=== PATIENT | female | born 1935 | race American Indian/Alaskan Native ===

== ENCOUNTER 2016-08-18 07:05 | Day surgery (SDC) | payer MEDICARE ==
[2016-08-18] MEDS ORDERED: XYLOCAINE 1% 20 mL ONE (07:30)
[2016-08-18] MEDS ORDERED: NACL BACTERIOSTATIC INFILTRATI ONE (07:32)
--- NOTE | 2016-08-18 07:43 | Anesthesia Day of Surgery ---
Anesthesia Day of Surgery - Day of Surgery Patient Examined: Yes Patient H&P Reviewed: Yes Patient is NPO: Yes Beta Blockers: Yes
--- NOTE | 2016-08-18 07:47 | Anesthesia Consultation ---
Anesthesia Consult and Med Hx Date of service: 08/18/16 - Airway Anesthetic Teeth Evaluation: Good ROM Head & Neck: Adequate Mental/Hyoid Distance: Adequate Mallampati Class: Class II Intubation Access Assessment: Probably Good - Pulmonary Exam CTA: Yes - Cardiac Exam Cardiac Exam: RRR - Pre-Operative Health Status ASA Pre-Surgery Classification: ASA3 Proposed Anesthetic Plan: General - Pulmonary Hx Smoking: Yes (CIGARETTES 5 CIGS PD X 10 YRS, QUIT IN 1966) Hx Asthma: No Hx Sleep Apnea: No - Cardiovascular System Hx Hypertension: Yes (FOR 11 YRS, DR. HARTMANN- PCP) Hx Heart Attack/AMI: No Hx Angina: No (palpitation in past, resolved per pt) - Central Nervous System Hx Seizures: No CVA: No Hx Back Pain: No Hx Psychiatric Problems: No - Gastrointestinal Hx Gastroesophageal Reflux Disease: No - Endocrine Hx Renal Disease: No Hx Liver Disease: No Hx Non-Insulin Dependent Diabetes: No - Hematic Hx Anemia: No Hx Sickle Cell Disease: No - Other Systems Hx Cancer: Yes (RIGHT BREAST, DX: 06/2016) Hx Obesity: Yes - Additional Comments Anesthesia Medical History Comments: NAC
[2016-08-18] MEDS ORDERED: VERSED IV NR (08:00)
[2016-08-18] MEDS ORDERED: VANCOMYCIN/NS 1 GM/250 ML 250 ML IV NR (08:00)
[2016-08-18] MEDS ORDERED: PEPCID PO NR (08:00)
[2016-08-18] MEDS ORDERED: NACL 0.9% 1000 ML 1,000 ML IV SCH (08:00)
--- NOTE | 2016-08-18 08:03 | Admit Criteria Form ---
Admission Criteria Documentation: AMBULATORY SURGERY EXCEPTION CRITERIA Ambulatory Surgery Exception Criteria ( Place 'X' for any and all applicable criteria): Surgery or procedure performed on ambulatory basis may require inpatient stay for[A] ANY ONE of the following(1)(2)(3)(4)(5)(6)(7)(8)(9): [X] I. A preoperative situation, condition, or finding that warrants inpatient stay as indicated by ANY ONE of the following: [] a) Inpatient care needed because of severity of a disease or condition rather than the surgery (eg, severe cardiac or respiratory disease, severe infection) (15) (16 ) (17) (18) [] b) Emergent procedure (eg, angioplasty for acute ischemia)(19) [] c) Complex surgical approach or situation as indicated by ANY ONE of the following(3): [] i) Open approach needed instead of usual endoscopic, transcatheter, or other less invasive procedure [] ii) Difficult approach because of previous operation [] iii) Airway monitoring required after open neck procedures(20)(21) [] iv) Large mass requiring unusually extensive dissection [] v) Additional complicating feature requiring inpatient care (eg, drain management)(22(23): [X] d) Major surgery in a pt with high anesthetic risk as indicated by ANY ONE of the following (2)(3)(5)(7)(8): [X] i) ASA risk class III or higher (severe systemic disease impairing function) [D] [] ii) Advanced age (eg, older than 85 years)(14)(24) [] iii) Symptomatic heart failure(25) [] iv) Symptomatic asthma or COPD(8)(21) [] v) Morbid obesity with hemodynamic or respiratory problems(20)( 21)(26)(27) [] vi) Obstructive sleep apnea(20)(21) [] vii) Former premature infants who are younger than 60 weeks [] viii) High risk for severe postoperative abnormalities (eg, severe postoperative hypocalcemia after parathyroidectomy for severe hyperparathyroidism)(27)( 28) [] ix) Unstable angina(25) [] e) Drug-related risk requiring inpatient stay as indicated by ANY ONE of the following(5)(10)(14)(32)(33) [] i) Procedure requires discontinuing drugs or other therapy (eg , antiarrhythmic medication, antiseizure medication), which necessitates inpatient observation or treatment.(18)(31) [] ii) Major surgery and high risk drug use as indicated by ANY ONE of the following: [] 1) Active abuse of cocaine or similar drug [] 2) Monoamine oxidase inhibitor use [] 3) Other drug identified as posing risk [] f) Inadequate outpatient care situation as indicated by ANY ONE of the following(5)(10)(14)(32)(33) [] i) Patient lives remote from medical facility and procedure has urgent complication potential, and temporary nearby residence cannot be arranged [] ii) Patient will have postprocedure incapacitation and inadequate assistance at home, or alternative level of care cannot be arranged. [] iii) Patient will have long general anesthesia or procedure side effect resolution time, and competent person to stay with patient on first postoperative night at home or alternative level of care cannot be arranged. []iv) Other inadequate outpatient situation that cannot be handled by other means [] II. A perioperative event, condition, or finding that warrants inpatient stay as indicated by ANY ONE of the following (1)(2)(3): [] a) Inadequate physiologic recovery: cardiovascular, respiratory, or hemodynamic status not normal or near preoperative baseline(18) [] b) Hemodynamic instability [] c) Patient not alert with near normal or baseline mental status [] d) Temperature not normal or as expected and not appropriate for outpatient treatment of condition [] e) Ambulatory or appropriate activity level status not yet achieved post procedure [E](34)(35)(36) [] f) Operative site not appropriate (eg, unexpected or excessive drainage or bleeding) [] g) Postoperative effects not resolved or adequately managed (eg, significant pain or vomiting not appropriate for outpatient or next level of care)(10)(12) [] h) Complicating features requiring inpatient care as indicated by ANY ONE of the following(37): [] i) Severe complications of procedure (eg, bowel injury, airway compromise, vascular injury,severe hemorrhage) [] ii) Extensive (eg, dissection far beyond usual scope of procedure ) or prolonged (eg, 120 minutes beyond usual) surgery needed requiring inpatient postoperative care [] iii) Conversion to an open or complex procedure that requires inpatient care (eg, open vs laparoscopic cholecystectomy, abdominal vs vaginal hysterectomy)(38) [] iv) Comorbid condition or test result identified during or post procedure that requires inpatient care (7) [] v) Malignant hyperthermia(30) [] vi) Other complicating feature requiring inpatient care(22)(23) Inpatient stay may be needed until ALL of the following are present (1)(2)(3)(4) (5)(6)(10)(14)(33)(40): []a) Physiologic recovery: cardiovascular, respiratory, and hemodynamic status normal or near preoperative baseline []b) Hemodynamic stability []c) Patient alert, with near normal or baseline mental status []d) Temperature appropriate: patient afebrile or temperature appropriate for outpt treatment of condition []e) Activity level appropriate: ambulatory or appropriate activity level post procedure []f) Operative site appropriate as indicated by ALL of the following: []i) Site dry or with expected drainage []ii) Any blood noted is as expected for procedure. []g) Postoperative effects resolved or managed as indicated by ALL of the following: []i) Pain management appropriate for outpatient (or next level of) care(10) []ii) Minimal nausea and vomiting: if present, successfully treated with oral medication(12) []iii) Headache, dizziness, or drowsiness (if present) are mild. []h) Voiding status acceptable as indicated by ANY ONE of the following: []i) Voiding spontaneously []ii) No voiding but instructions given for follow-up in 6 to 8 hours []iii) Urinary catheter in place, and instructions given for follow-up []i) Complicating features requiring inpatient care manageable at a lower level of care(37) []j) Comorbid conditions manageable at a lower level of care(37) The original [employer] content created by [employer] has been revised. The portions of the content which have been revised are identified through the use of italic text or in bold, and [facility] [employer] has neither reviewed nor approved the modified material. All other unmodified content is copyright [employer]. Please see references footnoted in the original [employer] edition 2016 Admission Criteria Met: Yes
[2016-08-18] MEDS ORDERED: XYLOCAINE 1% 20 mL INFILTRATI ONE (09:33)
[2016-08-18] MEDS ORDERED: WATER FOR IRRIG STERILE IR ONE ×2 (09:33→09:34)
[2016-08-18] MEDS ORDERED: XYLOCAINE MPF 2% ONE (09:54)
[2016-08-18] MEDS ORDERED: DIPRIVAN 10 MG/ML IV ONE (09:54)
[2016-08-18] MEDS ORDERED: DILAUDID ONE (09:54)
--- NOTE | 2016-08-18 10:19 | Procedure Note ---
Date of procedure: 08/18/16 Pre-op diagnosis: Breast cancer Post-op diagnosis: same Procedure: Needle localization Anesthesia: local Surgeon: MARIA GUADALUPE WILLSON Estimated blood loss: none Pathology: none Condition: stable (To surgery)
[2016-08-18] MEDS ORDERED: ZOFRAN ONE (10:30)
[2016-08-18] MEDS ORDERED: DECADRON ONE (10:30)
--- NOTE | 2016-08-18 11:15 | Mammography Report ---
Specimen radiograph. Findings: A single specimen radiograph confirms the presence of the biopsy clip and hookwire within the specimen.
--- NOTE | 2016-08-18 11:30 | Mammography Report ---
RIGHT BREAST NEEDLE LOCALIZATION PROCEDURE USING MAMMOGRAPHIC GUIDANCE: PROCEDURE: The patient's prior films were reviewed. The skin surface overlying the area of interest was prepped and draped using sterile technique. Local anesthetic was injected into the skin. Using mammographic guidance, a 5 cm Wright needle was advanced into the lateral aspect of the right breast at the site of the single biopsy clip. Adequate localization was accomplished and a hookwire was left in place. The patient tolerated the procedure well clinically and was sent to the OR in satisfactory condition.
--- NOTE | 2016-08-18 11:47 | Short Stay Summary ---
Short Stay Documentation Date of service: 08/18/16 - History H&P: obtained from office - Allergies and Medications Current Medications: Allergies penicillin Allergy (Unverified 04/24/15 13:56) Rash Home Medications Medication Instructions Recorded Confirmed Last Taken Type Aspirin [Adult Low Dose Aspirin EC] 81 mg PO QDAY 08/05/16 08/05/16 5 Days Ago History AtorvaSTATin [Lipitor] 20 mg PO QDAY 08/05/16 08/18/16 08/17/16 History Cholecalciferol Vit D3 [Vitamin D3] 1,000 unit PO QDAY 08/05/16 08/05/16 5 Days Ago History Losartan/Hydrochlorothiazide 1 each PO QDAY 08/05/16 08/05/16 08/18/16 06:30 History [Losartan-Hctz 100-25 mg Tab] Metoprolol [Lopressor TAB] 50 mg PO QDAY 08/05/16 08/05/16 08/18/16 06:30 History Multivit-Min/FA/Lycopen/Lutein 1 each PO QDAY 08/05/16 08/05/16 5 Days Ago History [Centrum Silver Tablet] amLODIPine [Norvasc] 5 mg PO DAILY 08/05/16 08/05/16 08/18/16 06:30 History HYDROcodone/APAP 5-325 [[place] 1 each PO Q6HR PRN #30 tablet 08/18/16 Unknown Rx 5/325] Active Medications Famotidine (Pepcid) 20 mg PO PREOP NR Stop: 08/18/16 23:00 Last Admin: 08/18/16 07:59 Dose: 20 mg Sodium Chloride (Nacl 0.9% 1000 Ml) 1,000 mls @ 75 mls/hr IV DIRECT ROSIBEL Last Admin: 08/18/16 08:49 Dose: 75 mls/hr Vancomycin HCl (Vancomycin/Ns 1 Gm/250 Ml) 250 mls @ 167 mls/hr IV PREOP NR PRN Reason: Protocol Stop: 08/18/16 23:00 Last Admin: 08/18/16 09:25 Dose: 167 mls/hr Midazolam HCl (Versed) 2 mg IV PREOP NR Stop: 08/18/16 23:59 Last Admin: 08/18/16 08:56 Dose: 1 mg - Brief post op/procedure progress note Date of procedure: 08/18/16 Pre-op diagnosis: Right breast cancer, DCIS Post-op diagnosis: same Procedure: Right needle localization partial mastectomy Anesthesia: GETA Findings: Wire and clip present within radiograph specimen Surgeon: ERNESTO MARSHALL Estimated blood loss: minimal Pathology: list (right needle localization) Specimen disposition: to lab Condition: stable - Disposition Condition at discharge: Good Disposition: DISCHARGED TO HOME OR SELFCARE Short Stay Discharge Plan Activity: other (no heavy lifting) Diet: regular Wound: other (keep incision clean and dry and may shower in 24 hours; no baths, pools or lakes; do not rub or scrub incision) Follow up with: AMBROCIO SHARMA MD [Primary Care Provider] - 7 Days ERNESTO MARSHALL MD [Staff Physician] - 7 Days Prescriptions: HYDROcodone/APAP 5-325 [[place] 5/325] 1 each PO Q6HR PRN #30 tablet PRN Reason: Pain
--- NOTE | 2016-08-18 11:53 | Operative Report ---
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 Anesthesia: Gen. Findings: Wire and clip present within radiograph specimen Drains: None Complications: None Disposition: Good condition to PACU Indications for operative procedure: This is a 81-year-old -[place] lady recently diagnosed with intermediate grade ductal carcinoma in situ of the right upper outer quadrant. Patient was noted to have suspicious microcalcifications noted on stereotactic breast biopsy with biopsy performed with findings of ductal carcinoma in situ. Recommendations were to proceed with a right needle localization partial mastectomy. Patient agreed to the above. Procedure in detail: Patient had a wire needle localization performed by radiology. Patient was then taken to the operating room and was laid supine. Gen. anesthesia was administered. The right breast was prepped and draped in the normal sterile operative fashion. The wire was noted. A skin incision was then made with a 15 blade knife with dissection taken down to the subcutaneous tissues. Procedure first began with raising of the lateral flap and removal of wire from the skin. Then proceeded with raising of the medial flap followed by the superior and inferior flaps. The specimen was appropriately removed from the pectoralis muscle without incident. Radiograph specimen with wire and clip present. Hemostasis was obtained with the Bovie cautery. The breast cavity was irrigated and suctioned. The skin incision was anesthetized with 1% lidocaine and quarter percent marcaine. The subcutaneous tissues were approximated and closed with an interrupted 3-0 Vicryl and skin closed with a running 4 Monocryl and skin affix. She tolerated surgery very well and was awakened from anesthesia without any complications and transported to PACU in good condition.
[2016-08-18] MEDS ORDERED: DILAUDID IV PRN (11:57)
--- NOTE | 2016-08-18 12:54 | Post Anesthesia Evaluation ---
- Post Anesthesia Evaluation Patient Participated: Yes Airway Patent: Yes Stable Respiratory Function: Yes Nausea/Vomiting: No Temp > 96.8F: Yes Pain Manageable: Yes Adequeate Hydration: Yes Anesthesia Complications: No Block Receding Appropriately: Not Applicable Patient on Ventilator: No
[2016-08-18 13:35] VITALS: BP 141/68
== END 2016-08-18 13:33 | disposition home or self-care (01) ==
LOC: OR 07:05
PROVIDERS: ATTEND Surgery
DX: D05.11 Intraductal carcinoma in situ of right breast (principal); I10 Essential (primary) hypertension; M41.9 Scoliosis, unspecified; E78.00 Pure hypercholesterolemia, unspecified; E66.9 Obesity, unspecified; Z68.32 Body mass index [BMI] 32.0-32.9, adult; Z87.891 Personal history of nicotine dependence; Z80.3 Family history of malignant neoplasm of breast; Z98.890 Other specified postprocedural states
CPT/HCPCS: 19281; 19301; 76098; 88307; J1100; J1170; J2250; J2405; J2704; J3370; J7030

== ENCOUNTER 2017-05-06 10:30 | Outpatient (CLI) | payer MEDICARE ==
--- NOTE | 2017-05-06 11:48 | Mammography Report ---
BONE DENSITY STUDY: DEFINITIONS: BMD = Bone Mineral Density T-score = BMD related to mean peak bone mass of young adult (mean expressed in Standard Deviation) Z-score = Age matched BMD expressed in SD World Health Organization (WHO) Diagnostic Criteria Normal T-score > -1 SD Osteopenia T-score between -1 and -2.4 SD Osteoporosis T-score -2.5 SD or below FINDINGS: The weighted average BMD of lumbar spine L1-L4 is 0.943 with a T-score of -0.9. The weighted average BMD of hip is 0.817 with a T-score of -1. IMPRESSION: The patient's T-score is diagnostic for osteopenia and average relative risk for fracture. NOTE: BMD is not the only risk factor for fracture; also consider factors such as the patient's age, risk of falling, previous osteoporotic fracture, family history of osteoporotic fractures, current smoker, and low body weight. Feldman's triangle is a region of interest in femur, predominantly of trabecular bone. It is not a true anatomic site, and ISCD does not recommend its use clinically.
== END 2017-05-06 10:31 | disposition home or self-care (01) ==
LOC: MAMMO 10:30
PROVIDERS: ATTEND Internal Medicine Hematology & Oncology
DX: M85.88 Other specified disorders of bone density and structure, other site (principal)
CPT/HCPCS: 77080

== ENCOUNTER 2019-05-07 11:01 | Outpatient (CLI) | payer MEDICARE ==
--- NOTE | 2019-05-07 13:34 | Mammography Report ---
BONE DEXA CLINICAL: Postmenopausal. COMPARISON: 05/06/2017 and 04/24/2015 TECHNIQUE: 2 site bone DEXA performed on an Hologic scanner. FINDINGS: The average BMD of the lumbar spine L1-L4 is 1.015g/cm squared with a T score of -0.3 and a Z score o f +1.8. This compares to 0.943g/cm squared on the last exam and represents a +7.7 % change from the [ last exam and a +4.0% change from baseline]. Moderate levoscoliosis with endplate sclerosis at L3-4 a nd L4-5. The average BMD of the left hip is 0.837 g/cm squared with a T score of -0.9and a Z score of -0.4. Th is compares to 0.817 g/cm squared on the last exam and represents a +2.4 % change from the [last exam and a +0.3% change from baseline. The left femoral neck BMD is 0.700g/cm squared with a T score of -1.3 and a Z score of 0. IMPRESSION: 1. WHO classification: Normal with average fracture risk based on spine measurements. 2. WHO classification Osteopenia with increased fracture risk based on left hip measurements. 3. A moderate improvement in spine BMD and a more modest improvement in left hip BMD compared to prev ious exams. 4. Major osteoporotic fracture risk is 5.2%. 5. Hip fracture risk is 1.1%. RECOMMENDATION: Clinical correlation and routine screening. Definitions: BMD equal bone mineral density T score = BMD related to peak bone mass of young adult ([place] expressed an standard deviation) Z score = age-matched BMD expressed in SD World health organization (WHO) diagnostic criteria Normal T score greater than equal to 1 standard deviation Osteopenia T score between -1 and -2.4 standard deviation Osteoporosis T score -2.5 standard deviation or below. Note: BMD is not the only risk factor for fracture; also consider factors such as the patient's age, risk of falling, previous osteoporotic fracture, family history of osteoporotic fractures, current sm oker and low body weight. Z scores are not calculated if greater than 80 years of age. Signer Name: Horace Anthony MD Signed: 05/07/2019 1:29 PM Workstation Name: [id number]
== END 2019-05-07 11:02 | disposition home or self-care (01) ==
LOC: MAMMO 11:01
PROVIDERS: ATTEND Internal Medicine Hematology & Oncology
DX: M85.88 Other specified disorders of bone density and structure, other site (principal); E78.00 Pure hypercholesterolemia, unspecified; I10 Essential (primary) hypertension; E66.9 Obesity, unspecified; Z78.0 Asymptomatic menopausal state
CPT/HCPCS: 77080

== ENCOUNTER 2021-12-01 14:20 | Outpatient (CLI) | payer MEDICARE ==
--- NOTE | 2021-12-03 12:00 | Mammography Report ---
DIGITAL SCREENING MAMMOGRAM WITH CAD, 12/01/2021 CLINICAL INFORMATION / INDICATION: Routine screening mammography. SCREENING MAMMO Z12.31 TECHNIQUE: Digital bilateral 2D mammography was obtained in the craniocaudal and mediolateral obliqu e projections. This examination was interpreted with the benefit of Computer-Aided Detection analysis . COMPARISON: 05/11/2018 through 05/19/2020. FINDINGS: Breast Density: There are scattered areas of fibroglandular density. No dominant mass, suspicious calcifications, or architectural distortion in the left breast. There are postlumpectomy changes in the right superior breast. There is a 4 cm mass at the lumpectomy site 5 cm from the nipple near the 12:00 position which is increasing in size over serial exams. No other change. IMPRESSION: Enlarging mass at the lumpectomy site in the right superior breast. Right breast ultrasou nd is recommended for initial evaluation. Follow up recommendation: Ultrasound BI-RADS Category 0: INCOMPLETE. Needs additional imaging evaluation and/or prior mammograms for vijay [place]. A "normal" or negative report should not discourage follow up or biopsy of a clinically significant f inding. A written summary of these findings will be mailed to the patient. The patient will be entered into a mammography reporting system which will generate a reminder letter for the patient's next appointmen t at the appropriate interval. The [employer] recommends yearly mammograms starting at age 40 and continuing as l patricia as a woman is in good health. Breast MRI is recommended for women with an approximate 20-25% or greater lifetime risk of breast cancer, including women with a strong family history of breast or ova geri cancer or who have been treated for Hodgkin's disease. Signer Name: Arnold Lucero MD Signed: 12/03/2021 11:55 AM Workstation Name: [id number]
== END 2021-12-01 14:21 | disposition home or self-care (01) ==
LOC: SPVWC 14:20
PROVIDERS: ATTEND Surgery
DX: Z12.31 Encounter for screening mammogram for malignant neoplasm of breast (principal)
CPT/HCPCS: 77067

== ENCOUNTER 2021-12-28 09:42 | Outpatient (CLI) | payer MEDICARE ==
--- NOTE | 2021-12-28 12:36 | Mammography Report ---
RIGHT DIGITAL DIAGNOSTIC MAMMOGRAM WITH CAD CONVENTIONAL, 12/28/2021 RIGHT LIMITED BREAST ULTRASOUND CLINICAL INFORMATION / INDICATION: Patient presents as a callback from screening mammogram for furthe r evaluation of a possible increasing mass at the lumpectomy site in the right breast. R92.8 TECHNIQUE: Digital right mammographic imaging was performed. Spot compression views were obtained. Li mited ultrasound was performed. This examination was interpreted with the benefit of Computer-Aided D etection (CAD) analysis. COMPARISON: Prior mammogram 12/01/2021, 05/19/2020, and 05/17/2019 FINDINGS: Breast Density: The breasts are heterogeneously dense, which may obscure small masses. MAMMOGRAPHIC FINDINGS: As seen on recent mammogram, there is a focal asymmetric density adjacent to t he lumpectomy site in the 11:00 position of the right breast, middle depth. This does not appear appr eciably changed compared with prior mammograms dating back to at least 05/17/2019, currently measuring up to 3.8 x 3.7 cm, previously 3.7 x 3.6 cm on prior study from 05/17/2019. Given prolonged stability , this favors a benign etiology. Targeted ultrasound was performed for further evaluation. ULTRASOUND FINDINGS: Targeted ultrasound evaluation was performed of the area of interest. Correspo nding with the mammographic finding, there is benign postlumpectomy change seen in the right breast 1 1:00 position located 5 cm from the nipple with surrounding dense fibroglandular tissue. No suspiciou s solid mass identified. IMPRESSION: 1. The previously described density at the lumpectomy site in the right breast is unchanged dating ba ck to at least 2018 and has the appearance of benign postlumpectomy change. No suspicious mammographi c or sonographic abnormality identified. Follow up recommendation: Routine yearly screening mammogram. BI-RADS Category 2: BENIGN. A "normal" or negative report should not discourage follow up or biopsy of a clinically significant f inding. A written summary of these findings will be mailed to the patient. The patient will be entered into a mammography reporting system which will generate a reminder letter for the patient's next appointmen t at the appropriate interval. According to the [employer], yearly mammograms are recommended starting at age 40 and continuing as long as a woman is in good health. Breast MRI is recommended for women with an damaso roximately 20-25% or greater lifetime risk of breast cancer, including women with a strong family his tory of breast or ovarian cancer and women who have been treated for Hodgkin's disease. Signer Name: Priscilla Senior MD Signed: 12/28/2021 12:31 PM Workstation Name: [email or web address]
== END 2021-12-28 09:43 | disposition home or self-care (01) ==
LOC: US 09:42
PROVIDERS: ATTEND Surgery
DX: R92.8 Other abnormal and inconclusive findings on diagnostic imaging of breast (principal); Z85.3 Personal history of malignant neoplasm of breast

== ENCOUNTER 2022-01-21 09:51 | Outpatient (CLI) | payer MEDICARE, OTHER ==
--- NOTE | 2022-01-21 11:41 | Mammography Report ---
DEXA BONE DENSITY SCAN INDICATION / CLINICAL INFORMATION: M85.89 OSTEOPENIA OF MULTIPLE SITES. 86 years Female COMPARISON: 05/07/2019 LUMBAR SPINE, L1-L4: - Bone mineral density (BMD) = 1.040 g/cm2. - T-score = -0.1 Change (%) since most recent prior (if available): +2.5 LEFT HIP, NECK : - Bone mineral density (BMD) = 0.733 g/cm2. - T-score = -1.0 Change (%) since most recent prior (if available): None available. IMPRESSION: 1. WHO Classification: Normal bone density. Fracture Risk: Not Increased. 2. 10-Year Fracture Risk (FRAX) = Major Osteoporotic Not reported.% / Hip: Not reported.% FRAX generally not reported for patients with normal or osteoporotic BMD, in nmq-snwihfc-joxixfc zoltan ents younger than age 50, or in patients undergoing pharmacotherapy BMD Reporting Guidelines (ISCD, 2015) BMD Reporting in Postmenopausal Women and in Men Age 50 and Older - T-scores are preferred. - The WHO densitometric classification is applicable. BMD Reporting in Females Prior to Menopause and in Males Younger Than Age 50 - Z-scores, not T-scores, are preferred. This is particularly important in children. - A Z-score of -2.0 or lower is defined as below the expected range for age, and a Z-score above -2.0 is within the expected range for age. - Osteoporosis cannot be diagnosed in men under age 50 on the basis of BMD alone. - The WHO diagnostic criteria may be applied to women in the menopausal transition. http://www.iscd.org/official-positions/7493-pdzz-aeeteyhc-positions-adult/ Signer Name: Kanu Menard MD Signed: 01/21/2022 11:37 AM Workstation Name: [email or web address] [id number]
== END 2022-01-21 09:52 | disposition home or self-care (01) ==
LOC: MAMMO 09:51
DX: M85.89 Other specified disorders of bone density and structure, multiple sites (principal)
CPT/HCPCS: 77080